=== PATIENT | female | born 1970 ===

== ENCOUNTER 2017-04-04 15:59 | Emergency (ER) | payer MEDICAID ==
[2017-04-04 16:13] VITALS: TEMP 99
--- NOTE | 2017-04-04 16:37 | ED PDOC ---
Arrival/HPI - General Chief Complaint: Abdominal Pain Time Seen by Provider: 04/04/17 16:10 Historian: Patient - History of Present Illness Narrative History of Present Illness (Text): 46yoF, who was seen in the ED today for epigastric pain with nausea/vomiting without bile/blood and otherwise without new foods/travel/sick contacts/headache /dizziness/difficulty breathing/chest pain/numbness/tingling/loss of limb function/travel/prior blood clots/prior cancer history/prior hormonal use/drug use/smoking. 04/04/17 16:36 04/04/17 16:39 Past Medical History - Provider Review Nursing Documentation Reviewed: Yes - Travel History Have you recently traveled outside [place] w/in the past 3 mons?: No - Cardiac Hx Cardiac Disorders: No - Pulmonary Hx Respiratory Disorders: No - Neurological Hx Neurological Disorder: No - HEENT Hx HEENT Disorder: No - Renal Hx Renal Disorder: No - Endocrine/Metabolic Hx Endocrine Disorders: No - Hematological/Oncological Hx Blood Disorders: No - Integumentary Hx Dermatological Disorder: No - Musculoskeletal/Rheumatological Hx Musculoskeletal Disorders: Yes Hx Back Pain: Yes - Gastrointestinal Hx Gastrointestinal Disorders: No - Genitourinary/Gynecological Hx Genitourinary Disorders: No - Psychiatric Hx Psychophysiologic Disorder: No Hx Substance Use: Yes (CANNABIS) Family/Social History - Physician Review Nursing Documentation Reviewed: Yes Family/Social History: No Known Family HX Smoking Status: Former Smoker Hx Alcohol Use: No Hx Substance Use: Yes (CANNABIS) Allergies/Home Meds Allergies/Adverse Reactions: Allergies No Known Allergies Allergy (Verified 04/04/17 16:19) Review of Systems - Review of Systems Constitutional: Normal Eyes: Normal ENT: Normal Respiratory: Normal Cardiovascular: Normal Gastrointestinal: Abdominal Pain, Nausea, Vomiting Genitourinary Female: Normal Musculoskeletal: Normal Skin: Normal Neurological: Normal Endocrine: Normal Hemo/Lymphatic: Normal Psychiatric: Normal Physical Exam Vital Signs Reviewed: Yes Vital Signs Temp Pulse Resp BP Pulse Ox 04/04/17 16:12 99.0 F 63 24 115/73 98 Temperature: Afebrile Blood Pressure: Normal Pulse: Regular Respiratory Rate: Normal Appearance: Positive for: Well-Appearing, Non-Toxic, Comfortable Pain Distress: None Mental Status: Positive for: Alert and Oriented X 3 - Systems Exam Head: Present: Atraumatic, Normocephalic Pupils: Present: PERRL Extroacular Muscles: Present: EOMI Conjunctiva: Present: Normal Ears: Present: Normal Mouth: Present: Moist Mucous Membranes Pharnyx: Present: Normal Nose (External): Present: Atraumatic Nose (Internal): Present: Normal Inspection Neck: Present: Normal Range of Motion Respiratory/Chest: Present: Clear to Auscultation, Good Air Exchange Cardiovascular: Present: Regular Rate and Rhythm Abdomen: Present: Tenderness (epigastric) Back: Present: Normal Inspection Upper Extremity: Present: Normal Inspection Lower Extremity: Present: Normal Inspection Neurological: Present: GCS=15, CN II-XII Intact, Speech Normal, Motor Func Grossly Intact Skin: Present: Warm, Normal Color Psychiatric: Present: Alert, Oriented x 3, Normal Insight, Normal Concentration Medical Decision Making ED Course and Treatment: 46yoF, who was seen in the ED today for epigastric pain with nausea/vomiting without bile/blood and otherwise without new foods/travel/sick contacts/headache /dizziness/difficulty breathing/chest pain/numbness/tingling/loss of limb function/travel/prior blood clots/prior cancer history/prior hormonal use/drug use/smoking. You were otherwise breathing easily, smiling, good strength/ sensation, walking easily, clear lungs, no abdomen tenderness, no fever temp 99 , stable heart rate 63, stable breathing rate 24, excellent oxygen level 98% room air, stable blood pressure 115/73, you have blood tests mild infection count 11.6, stable blood level hemoglobin 15/platelets 372, stable chemistry sodium 140, potassium 3.8, bicarbonate 25, chloride 105, bun 14, creatinine 0.7 , glucose 110, liver AST/ALT 30/47, Liver Alklaline Phosphatase, 90 Liver bilirubin 0.3, lipase 321, heart blood test normal, urine test no infection, urine test negative, radiology CT abdomen/pelvis signs of mild enteritis without other acute findings, ECG normal sinus rhythm, intravenous fluids, anti-acid, anti-nausea zofran done in the ED with improvement, counselled to drink lots of fluids and advance diet as tolerated and thus discharged home with family. 1. Recommend zofran as directed for nausea. 2. Recommend follow-up primary care 2-3 days to review symptoms, referral to gastroentrology to review symptoms and for liver lesion to ensure no cancer development, referral to surgery for adrenal lesion to ensure no cancer development, referral to urology for protein in urine to ensure no complications. 4. If any worsening pain, fever, chills, nausea, vomiting, difficulty breathing, numbness, loss of limb function, pain with urination or any medical condition then return to the ED. 04/04/17 16:41 04/04/17 18:26 04/04/17 22:33 04/04/17 22:34 04/04/17 22:34 04/04/17 22:35 04/04/17 22:40 - Lab Interpretations Lab Results: 04/04/17 17:00 04/04/17 17:00 Lab Results 04/04/17 17:04: Urine Color Yellow, Urine Appearance Clear, Urine pH 6.0, Ur Specific Herod >= 1.030, Urine Protein Trace H, Urine Glucose (UA) Negative, Urine Ketones Trace H, Urine Blood Small H, Urine Nitrate Negative, Urine Bilirubin Negative, Urine Urobilinogen 0.2, Ur Leukocyte Esterase Negative, Urine RBC 1 - 3, Urine WBC 2 - 5, Ur Epithelial Cells 4 - 5, Urine Bacteria Mod 04/04/17 17:00: Sodium 140, Potassium 3.8, Chloride 105, Carbon Dioxide 25, Anion Gap 14, BUN 14, Creatinine 0.7, Est GFR ( Amer) > 60, Est GFR (Non- Af Amer) > 60, Random Glucose 110, Calcium 9.5, Total Bilirubin 0.3, AST 30, ALT 47, Alkaline Phosphatase 90, Troponin I < 0.01, Total Protein 7.8, Albumin 4.3, Globulin 3.5, Albumin/Globulin Ratio 1.2, Lipase 321 H 04/04/17 17:00: PT 11.6, INR 1.06, APTT 28.2 04/04/17 17:00: WBC 11.6 H, RBC 5.07, Hgb 15.1, Hct 45.0, MCV 88.8, MCH 29.8, MCHC 33.6, RDW 13.6, Plt Count 372, MPV 10.4, Gran % 69.9 H, Lymph % (Auto) 20.4 L, Vernon % (Auto) 5.4, Eos % (Auto) 4.0, Baso % (Auto) 0.3, Gran # 8.10 H, Lymph # 2.4, Vernon # 0.6, Eos # 0.5, Baso # 0.03 I have reviewed the lab results: Yes - RAD Interpretation Radiology Orders: 04/04/17 18:57 ABD & PELVIS IV CONTRAST ONLY [CT] Stat - Medication Orders Current Medication Orders: Discontinued Medications Sodium Chloride (Sodium Chloride 0.9%) 1,000 mls @ 999 mls/hr IV .Q1H1M STA Stop: 04/04/17 17:50 Last Admin: 04/04/17 17:00 Dose: 999 mls/hr eMAR Start Stop Document 04/04/17 17:00 MARSHA (Rec: 04/04/17 17:09 [id number]) Intravenous Solution Start Date 04/04/17 Start Time 17:00 End Date 04/04/17 End time 18:00 Total Infusion Time 60 Ondansetron HCl (Zofran Inj) 4 mg IVP STAT STA Stop: 04/04/17 16:34 Last Admin: 04/04/17 17:00 Dose: 4 mg IVP Administration Document 04/04/17 17:00 MARSHA (Rec: 04/04/17 17:09 [id number] Charges for Administration # of IVP Administrations 1 Pantoprazole Sodium (Protonix Inj) 40 mg IVP STAT STA Stop: 04/04/17 16:34 Last Admin: 04/04/17 17:05 Dose: 40 mg IVP Administration Document 04/04/17 17:05 MARSHA (Rec: 04/04/17 17:09 [id number]) Charges for Administration # of IVP Administrations 1 Disposition/Present on Arrival - Present on Arrival Any Indicators Present on Arrival: No History of DVT/PE: No History of Uncontrolled Diabetes: No Urinary Catheter: No History of Decub. Ulcer: No History Surgical Site Infection Following: None - Disposition Have Diagnosis and Disposition been Completed?: Yes Diagnosis: Viral gastroenteritis Disposition: HOME/ ROUTINE Disposition Time: 22:43 Patient Plan: Discharge Condition: IMPROVED Additional Instructions: 46yoF, who was seen in the ED today for epigastric pain with nausea/vomiting without bile/blood and otherwise without new foods/travel/sick contacts/headache /dizziness/difficulty breathing/chest pain/numbness/tingling/loss of limb function/travel/prior blood clots/prior cancer history/prior hormonal use/drug use/smoking. You were otherwise breathing easily, smiling, good strength/ sensation, walking easily, clear lungs, no abdomen tenderness, no fever temp 99 , stable heart rate 63, stable breathing rate 24, excellent oxygen level 98% room air, stable blood pressure 115/73, you have blood tests mild infection count 11.6, stable blood level hemoglobin 15/platelets 372, stable chemistry sodium 140, potassium 3.8, bicarbonate 25, chloride 105, bun 14, creatinine 0.7 , glucose 110, liver AST/ALT 30/47, Liver Alklaline Phosphatase, 90 Liver bilirubin 0.3, lipase 321, heart blood test normal, urine test no infection, urine test negative, radiology CT abdomen/pelvis signs of mild enteritis without other acute findings, ECG normal sinus rhythm, intravenous fluids, anti-acid, anti-nausea zofran done in the ED with improvement, counselled to drink lots of fluids and advance diet as tolerated and thus discharged home with family. 1. Recommend zofran as directed for nausea. 2. Recommend follow-up primary care 2-3 days to review symptoms, referral to gastroentrology to review symptoms and for liver lesion to ensure no cancer development, referral to surgery for adrenal lesion to ensure no cancer development and to review for any gallbladder related pain and for ultrasound evaluation, referral to urology for protein in urine to ensure no complications. 4. If any worsening pain, fever, chills, nausea, vomiting, difficulty breathing, numbness, loss of limb function, pain with urination or any medical condition then return to the ED. Prescriptions: Ondansetron ODT [Zofran ODT] 4 mg PO Q8 PRN #20 odt PRN Reason: Nausea/Vomiting Forms: [facility] ([place])
[2017-04-04] MEDS ORDERED: Sodium Chloride 0.9% 1,000 ML IV STA (16:50)
[2017-04-04 17:12] LABS: URINE BILIRUBIN NEGATIVE (NEGATIVE); URINE BLOOD SMALL (NEGATIVE); URINE GLUCOSE (UA) NEGATIVE (NEGATIVE); URINE KETONE TRACE mg/dL (NEGATIVE); URINE LEUKOCYTE ESTERASE NEGATIVE Leu/uL (NEGATIVE); URINE PROTEIN TRACE mg/dL (<30 mg/dL); URINE UROBILINOGEN 0.2 E.U./dL (<1 E.U./dL)
[2017-04-04 17:15] LABS: URINE APPEARANCE CLEAR (CLEAR); URINE COLOR YELLOW (YELLOW)
[2017-04-04 17:32] LABS: BASO # 0.03 K/mm3 (0.0-2.0); BASO % 0.3 % (0.0-3.0); EOS # 0.5 (0.0-0.7); GRAN # 8.1 (1.4-6.5); GRAN % 69.9 % (50.0-68.0); LYMPH # 2.4 (1.2-3.4); LYMPH % 20.4 % (22.0-35.0); MEAN CELL VOLUME 88.8 fl (80.0-105.0); MEAN CORPUSCULAR HEMOGLOBIN 29.8 pg (25.0-35.0); MEAN CORPUSCULAR HGB CONC 33.6 g/dl (31.0-37.0); MEAN PLATELET VOLUME 10.4 fl (7.0-11.0); MONO # 0.6 (0.1-0.6); MONO % 5.4 % (1.0-6.0); RED CELL DISTRIBUTION WIDTH 13.6 % (11.5-14.5); WHITE BLOOD COUNT 11.6 10^3/ul (4.5-11.0)
[2017-04-04 17:33] LABS: URINE BACTERIA MOD (NEG)
[2017-04-04 17:39] LABS: ALB/GLOB RATIO 1.2 (1.1-1.8); ALKALINE PHOSPHATASE 90 U/L (38-126); ALT/SGPT 47 U/L (7-56); AST/SGOT 30 U/L (14-36); BILIRUBIN,TOTAL 0.3 mg/dL (0.2-1.3); BLOOD UREA NITROGEN 14 mg/dL (7-21); CALCIUM 9.5 mg/dL (8.4-10.5); CARBON DIOXIDE 25 mmol/L (21-33); CHLORIDE 105 mmol/L (98-107); GFR AFRICAN-AMERICAN > 60; GLUCOSE,RANDOM 110 mg/dL (70-110); INR 1.06 (0.93-1.08); LIPASE 321 U/L (23-300); PARTIAL THROMBOPLASTIN TIME 28.2 Seconds (25.1-36.5); POTASSIUM 3.8 mmol/L (3.6-5.0); SODIUM 140 mmol/L (132-148); TOTAL PROTEIN 7.8 g/dL (5.8-8.3)
[2017-04-04 17:58] LABS: TROPONIN I < 0.01 ng/mL
[2017-04-04] MEDS ORDERED: Iohexol 350 MG/100 ML VIAL ONE (19:02)
--- NOTE | 2017-04-04 22:21 | CT ---
EXAM: CT Abdomen and Pelvis With Intravenous Contrast CLINICAL HISTORY: 46 years old, female; Pain; Abdominal pain; Other: Epigastric and back pain; Additional info: 46f, with abd pain, elevated lipase. TECHNIQUE: Axial computed tomography images of the abdomen and pelvis with intravenous contrast. All CT scans at this facility use one or more dose reduction techniques, viz.: automated exposure control; ma/kV adjustment per patient size (including targeted exams where dose is matched to indication; i.e. head); or iterative reconstruction technique. Coronal and sagittal reformatted images were created and reviewed. CONTRAST: 95 mL of OMNI 350 administered intravenously. COMPARISON: No relevant prior studies available. FINDINGS: Lower thorax: Minimal atelectasis. ABDOMEN: Liver: < 0.5 cm lesion. Gallbladder and bile ducts: No calcified stones. No ductal dilation. Pancreas: No ductal dilation. No mass. Spleen: No splenomegaly. Adrenals: 1.2 x 1.1 x 1.1 cm lesion within LEFT adrenal gland, indeterminate by CT criteria. Kidneys and ureters: Few too small to characterize lesions within LEFT kidney. No hydronephrosis. Stomach and bowel: Apparent mild mural/fold thickening vs underdistention of several jejunal loops. Mild stranding/haziness with an associated small bowel mesentery. Scattered diverticula within colon. No associated inflammatory stranding. No obstruction. Appendix: Normal caliber. No definite inflammation. PELVIS: Bladder: Unremarkable. Reproductive: Unremarkable as visualized. ABDOMEN and PELVIS: Intraperitoneal space: Trace free fluid within abdomen and pelvis. No free air. Bones/joints: No acute fracture. Soft tissues: Unremarkable. Vasculature: Unremarkable. No aneurysm. Lymph nodes: No pathologically enlarged lymph nodes. IMPRESSION: 1. Probable mild enteritis. Clinical correlation is needed. 2. Liver lesion. For patients with low to average risk of malignancy, no further follow-up is necessary. For patients with high risk of malignancy (known malignancy that can metastasize or other risk factors), recommend follow-up abdominal CT or MR in 6 months. 3. Adrenal lesion. Recommend further evaluation with unenhanced abdominal CT or MR. Alternatively, if there is a history of malignancy, consider PET. 4. Incidental/non-acute findings are described above.
[2017-04-04 22:50] VITALS: RESP 18
[2017-04-04 22:54] VITALS: BP 112/53; PULSE 72; O2SAT 100
--- NOTE | 2017-04-05 10:13 | CARD ---
APPROVED REPORT EKG Measurement Heart [id number] CT 170P21 [id number] <Conclusion> Normal sinus rhythm Incomplete right bundle branch block PRWP NSSTW changes Low voltage lateral leads Prolonged QTc
== END 2017-04-04 22:54 | disposition home or self-care (01) ==
LOC: MERGE 15:59 → ED 15:59
DX: A08.4 Viral intestinal infection, unspecified (principal)
CPT/HCPCS: 74177; 80053; 81001; 83690; 84484; 85025; 85610; 85730; 87086; 93005; 96361; 96374; 96375; 99284; C9113; J2405; J7040; Q9967